=== PATIENT | female | born 1985 | race Two or more races ===

== ENCOUNTER 2022-12-18 22:22 | Emergency (ER) | payer OTHER ==
[~2022-12-18] VITALS: Ht 170.2 cm; Wt 83.9 kg
[2022-12-18] MEDS ORDERED: MONTELUKAST SOD10 MG PO (22:37)
== END 2022-12-18 23:48 | disposition home or self-care (01) ==
LOC: ER 22:22
DX: M25.511 Pain in right shoulder (principal); M54.2 Cervicalgia; M54.9 Dorsalgia, unspecified